=== PATIENT | female | born 1950 | race Caucasian/White ===

== ENCOUNTER 2023-04-02 09:48 | Outpatient (REF) | payer MEDICARE, SELFPAY ==
--- NOTE | ~2023-04-02 | XR_ITS ---
EXAMINATION: XR KNEE, AP STANDING BILATERAL XR KNEE, RIGHT CLINICAL INFORMATION: Right knee pain. COMPARISON: None available. TECHNIQUE: AP standing view of bilateral knees. Lateral and sunrise view right knee. FINDINGS: RIGHT KNEE: Trace joint effusion. Mild medial joint space narrowing. Small medial and posterior patellar osteophytes. Small quadriceps enthesophyte. Sclerotic focus projecting over the posterior distal femur may represent a bone island. AP VIEW LEFT KNEE: Mild medial joint space narrowing with small marginal osteophytes. Small sclerotic focus overlying the lateral femoral condyle may possibly represent a bone island. Oval 1.8 cm peripherally calcified focus in the lateral distal soft tissues of the right thigh of indeterminate etiology. XR/XR knee RT 2V IMPRESSION: Mild degenerative changes right knee with trace joint effusion. Mild degenerative changes on AP view of the left knee. Oval 1.8 cm peripherally calcified focus in the lateral distal soft tissues of the right thigh of indeterminate etiology. Correlation with clinical exam recommended to determine further management. Recommend additional imaging with dedicated views of the right femur.
--- NOTE | ~2023-04-02 | XR_ITS ---
EXAMINATION: XR KNEE, AP STANDING BILATERAL XR KNEE, RIGHT CLINICAL INFORMATION: Right knee pain. COMPARISON: None available. TECHNIQUE: AP standing view of bilateral knees. Lateral and sunrise view right knee. FINDINGS: RIGHT KNEE: Trace joint effusion. Mild medial joint space narrowing. Small medial and posterior patellar osteophytes. Small quadriceps enthesophyte. Sclerotic focus projecting over the posterior distal femur may represent a bone island. AP VIEW LEFT KNEE: Mild medial joint space narrowing with small marginal osteophytes. Small sclerotic focus overlying the lateral femoral condyle may possibly represent a bone island. Oval 1.8 cm peripherally calcified focus in the lateral distal soft tissues of the right thigh of indeterminate etiology. XR/XR knee standing BI IMPRESSION: Mild degenerative changes right knee with trace joint effusion. Mild degenerative changes on AP view of the left knee. Oval 1.8 cm peripherally calcified focus in the lateral distal soft tissues of the right thigh of indeterminate etiology. Correlation with clinical exam recommended to determine further management. Recommend additional imaging with dedicated views of the right femur.
--- NOTE | ~2023-04-02 | XR_ITS ---
EXAMINATION: XR KNEE, AP STANDING BILATERAL XR KNEE, RIGHT CLINICAL INFORMATION: Right knee pain. COMPARISON: None available. TECHNIQUE: AP standing view of bilateral knees. Lateral and sunrise view right knee. FINDINGS: RIGHT KNEE: Trace joint effusion. Mild medial joint space narrowing. Small medial and posterior patellar osteophytes. Small quadriceps enthesophyte. Sclerotic focus projecting over the posterior distal femur may represent a bone island. AP VIEW LEFT KNEE: Mild medial joint space narrowing with small marginal osteophytes. Small sclerotic focus overlying the lateral femoral condyle may possibly represent a bone island. Oval 1.8 cm peripherally calcified focus in the lateral distal soft tissues of the right thigh of indeterminate etiology. XR/XR knee LT 2V IMPRESSION: Mild degenerative changes right knee with trace joint effusion. Mild degenerative changes on AP view of the left knee. Oval 1.8 cm peripherally calcified focus in the lateral distal soft tissues of the right thigh of indeterminate etiology. Correlation with clinical exam recommended to determine further management. Recommend additional imaging with dedicated views of the right femur.
== END 2023-04-02 09:49 | disposition home or self-care (01) ==
LOC: HO.HOSX 09:48
PROVIDERS: Visit Provider Orthopaedic Surgery
DX: M23.91 Unspecified internal derangement of right knee (principal); M25.562 Pain in left knee; Z98.890 Other specified postprocedural states
CPT/HCPCS: 73560; 73565; 99202

== ENCOUNTER 2023-04-02 09:52 | Outpatient (AMB) | payer MEDICARE, OTHER, SELFPAY ==
--- NOTE | 2023-04-02 10:04 | A.OFFVIS_ITS ---
Intake Intake Visit Reasons: New Pt Intake Note: Patient reports that he injured her knee at the end of November, She had an Arthroscopic surgery in [place]. She was feeling good post operative but in february she felt an increase in pain. She does play pickleball but does not think she injured it while playing. She takes advil for her pain which helps but does not want to continue to take this. Her pain is on the medial aspect of the knee, her pain is felt all the time but increases with ambulation. She also complains of weakness. Allergies hayfever Allergy (Uncoded 04/02/23 10:07) Sneezing HPI New Pt HPI Details Lin is a 72 year old woman who presents with complaints of worsening right knee pain, S/P partial meniscectomy & chondroplasty, DOS: 01/07/23 in [place]. This was after a knee injury at the end of November. She complains of worsening pain in the medial aspect of her knee, which began in the last few weeks. She says her pain is now constant and worse with walking, along with some weakness. This is difficult as she lives on the 3rd floor, and she had to get a neighbour to walk her dog. She feels unstable when using stairs and has to hold onto the railing. She has been trying to ice her knee, and takes Advil, neither of which has been particularly helpful. She says active playing pickleball but says she is unable to play anymore because of her knee. Her pain began after she had been playing pickleball for ~2 weeks following her surgery. She is upset that she cannot be as active as she wants to. [facility] Surgical History (Updated 04/02/23 @ 10:19 by Clarke Hernández) S/P right knee arthroscopy (01/07/23) Review of Systems Const All systems reviewed & are unremarkable except as noted in HPI and below Physical Exam Const General: no acute distress, alert and awake Orientation/consciousness: patient oriented x3 HEENT Head: Yes normocephalic and Yes atraumatic Eyes EOM: EOMs intact bilaterally Resp Effort & Inspection: normal respiratory effort and able to speak in complete sentences Cardio Jugular venous distension: no JVD Skin General skin exam: turgor normal Rashes: no rashes Neuro General: patient oriented x3 Extrem Other: Right Knee: TTP over medial tibial plateau & medial joint line, severe with mild pressure Mild effusion Walks with antalgia Psych Appearance: grossly normal Affect: normal affect Attitude: cooperative Assessment & Plan Assessment & Plan (1) Internal derangement of right knee: Code(s): M23.91 - Unspecified internal derangement of right knee Plan: This is a 72 year old woman with right knee internal derangement, S/P right partial meniscectomy with chondroplasty, DOS: 01/07/23 in [place]. She complains of days worsening medial-sided knee pain. My concern if for insufficiency fracture. She is exquisitely painful over the medial femoral conyle. Her pain is worse with using stairs or ambulation, along with weakness. I discussed treatment options and ordered an MRI to assess her knee. I recommend NSAIDs, RICE, and strengthening exercises. She will follow up in 2 weeks for an MRI review. (2) S/P medial meniscus repair of right knee: Code(s): Z98.890 - Other specified postprocedural states Plan Scribed for Cameron Bird MD by Clarke Hernández [employer], on 04/02/23 at 10:25, EST. Orders: Orders XR knee LT 2V 04/02/23 M25.569 - Pain in unspecified knee XR knee RT 2V 04/02/23 M25.569 - Pain in unspecified knee XR knee standing BI 04/02/23 M25.569 - Pain in unspecified knee MR knee RT wo con 04/02/23 Z98.890 - Other specified postprocedural states Coding Level of Care Code New Pt Level 4 (10293) Diagnoses Internal derangement of right knee M23.91 S/P medial meniscus repair of right knee Z98.890
== END 2023-04-02 11:07 | disposition home or self-care (01) ==
PROVIDERS: Visit Provider Orthopaedic Surgery
DX: M23.91 Unspecified internal derangement of right knee (principal)
CPT/HCPCS: 99204